=== PATIENT | female | born 1975 | race Caucasian/White ===

== ENCOUNTER 2016-12-17 11:56 | Emergency (ER) | payer OTHER ==
[~2016-12-17] VITALS: Ht 167.6 cm; Wt 59.1 kg
[2016-12-17] MEDS ORDERED: BIRTH CONTROL PO (12:32)
[2016-12-17] MEDS ORDERED: ALBU8HFA IH (12:32)
[2016-12-17] MEDS ORDERED: IBUPROFEN 600 MG TABLET PO ONE (13:00)
[2016-12-17] MEDS ORDERED: GABA-533 PO (13:08)
[2016-12-17] MEDS ORDERED: CLON.5 PO (13:08)
[2016-12-17] MEDS ORDERED: LORazepam 2 MG TABLET PO ONE (13:45)
[2016-12-17 15:18] VITALS: BP 125/68
== END 2016-12-17 15:20 | disposition home or self-care (01) ==
LOC: EMS 11:57
DX: S09.90XA Unspecified injury of head, initial encounter (principal); F41.9 Anxiety disorder, unspecified; M54.5 Low back pain; J45.909 Unspecified asthma, uncomplicated; F17.210 Nicotine dependence, cigarettes, uncomplicated; W19.XXXA Unspecified fall, initial encounter; Y93.89 Activity, other specified; Y92.89 Other specified places as the place of occurrence of the external cause; Y99.8 Other external cause status
CPT/HCPCS: 70450; 99284

== ENCOUNTER 2016-12-30 14:42 | Emergency (ER) | payer OTHER ==
[~2016-12-30] VITALS: Ht 167.6 cm; Wt 65.9 kg
[~2016-12-30 14:42] MED LIST: ALBU8HFA IH; BIRTH CONTROL PO; CLON.5 PO; GABA-533 PO
[2016-12-30] MEDS ORDERED: KETOROLAC TROMETHAMINE 30 MG/ML VIAL IVP ONE (15:15)
[2016-12-30] MEDS ORDERED: ONDANSETRON HCL 4 MG/2 ML VIAL IVP ONE (15:15)
[2016-12-30] MEDS ORDERED: SODIUM CHLORIDE 0.9% 1,000 ML IV ONE (15:15)
[2016-12-30 15:40] LABS: BASOPHILS % (AUTO) 0.5 % (0.0-2.0); EOSINOPHILS % (AUTO) 3.2 % (1.0-6.0); HEMATOCRIT 43.7 % (36-46); HEMOGLOBIN 14.1 g/dL (12.0-16.0); LYMPHOCYTES # (AUTO) 1.9 K/uL (1.0-4.8); LYMPHOCYTES % (AUTO) 26.4 % (22.0-44.0); MEAN CORPUSCULAR HEMOGLOBIN 31.6 pg (26.0-34.0); MEAN CORPUSCULAR HGB CONC 32.2 G/dL (31.0-37.0); MEAN CORPUSCULAR VOLUME 98 fL (80-100); MONOCYTES # (AUTO) 0.6 K/uL (0.1-1.0); MONOCYTES % (AUTO) 7.9 % (2.0-9.0); NEUTROPHILS # (AUTO) 4.6 K/uL (1.8-7.7); PLATELET COUNT (AUTO) 285 K/uL (150-450); RED BLOOD CELL COUNT(AUTO) 4.46 MIL/uL (4.00-5.20); RED CELL DISTRIBUTION WIDTH 13.7 % (11.5-14.5); WHITE BLOOD COUNT (AUTO) 7.4 K/uL (4.5-11.0)
[2016-12-30 18:11] VITALS: BP 112/68
== END 2016-12-30 18:56 | disposition home or self-care (01) ==
LOC: EMS 14:44
DX: N93.9 Abnormal uterine and vaginal bleeding, unspecified (principal); R10.2 Pelvic and perineal pain; J45.909 Unspecified asthma, uncomplicated; F17.210 Nicotine dependence, cigarettes, uncomplicated
CPT/HCPCS: 36415; 81025; 85025; 96361; 96374; 96375; 99284; J1885; J2405; J7030

== ENCOUNTER 2019-07-25 11:50 | Inpatient (IN) | payer MEDICAID ==
[~2019-07-25] VITALS: Ht 167.6 cm; Wt 59.1 kg
[2019-07-25 13:02] VITALS: BP 104/72
[2019-07-25 13:40] VITALS: BP 112/71
[2019-07-25] MEDS ORDERED: OMEPRAZOLE 20 MG CAPSULE PO PRN (14:30)
[2019-07-25] MEDS ORDERED: CloNIDine HCL 0.1 MG TABLET PO PRN (14:30)
[2019-07-25] MEDS ORDERED: MAGNESIUM HYDROXIDE SUSPENSION 30 ML UDCUP PO PRN (14:30)
[2019-07-25] MEDS ORDERED: BENZOCAINE/MENTHOL LOZENGE MM PRN (14:30)
[2019-07-25] MEDS ORDERED: ONDANSETRON HCL 4 MG TABLET PO PRN (14:30)
[2019-07-25] MEDS ORDERED: ACETAMINOPHEN 325 MG TABLET PO PRN (14:30)
[2019-07-25] MEDS ORDERED: PETROLATUM,WHITE 28 GM JELLY TP PRN (14:30)
[2019-07-25] MEDS ORDERED: LOPERAMIDE HCL 2 MG CAPSULE PO PRN (14:30)
[2019-07-25] MEDS ORDERED: DOCUSATE SODIUM 100 MG CAPSULE PO PRN (14:30)
[2019-07-25] MEDS ORDERED: MAG HYDROX/AL HYDROX/SIMETH ES 30 ML SUSPENSION UDCUP PO PRN (14:30)
[2019-07-25] MEDS ORDERED: BACITRACIN 28.4 GM OINTMENT TP PRN (14:30)
[2019-07-25] MEDS ORDERED: *PATIENT'S OWN MED [ENTER DRUG, DOSE, FREQUENCY IN COMMENTS] CLINICAL ONE (14:45)
[2019-07-25] MEDS: LORazepam 2 MG TABLET PO PRN (16:14)
[2019-07-25 16:15] VITALS: BP 122/86
[2019-07-25 16:28] VITALS: BP 103/64
[2019-07-25] MEDS: ZOLPIDEM TARTRATE 10 MG TABLET PO PRN (20:21)
[2019-07-26] MEDS: HALOPERIDOL 5 MG TABLET PO PRN ×2 (02:03→09:55)
[2019-07-26] MEDS: LORazepam 2 MG TABLET PO PRN ×4 (02:03→20:17)
[2019-07-26 02:20] VITALS: BP 107/74
[2019-07-26] MEDS: ALBUTEROL SULFATE HFA 90 MCG/PUFF 8 GM INHALER IH PRN (06:52)
[2019-07-26 08:06] VITALS: BP 111/56
[2019-07-26] MEDS: LEVOFLOXACIN 500 MG TABLET PO SCH (08:09)
[2019-07-26] MEDS: GABAPENTIN 400 MG CAPSULE PO SCH ×3 (08:09→16:33)
[2019-07-26 08:16] LABS: BASOPHILS % (AUTO) 0.6 % (0.0-2.0); EOSINOPHILS % (AUTO) 7.5 % (1.0-6.0); HEMATOCRIT 39.9 % (36-46); HEMOGLOBIN 13.6 g/dL (12.0-16.0); LYMPHOCYTES # (AUTO) 1.8 K/uL (1.0-4.8); MEAN CORPUSCULAR HEMOGLOBIN 33.4 pg (26.0-34.0); MEAN CORPUSCULAR VOLUME 98 fL (80-100); MONOCYTES # (AUTO) 0.7 K/uL (0.1-1.0); MONOCYTES % (AUTO) 10.2 % (2.0-9.0); NEUTROPHILS # (AUTO) 4.1 K/uL (1.8-7.7); NEUTROPHILS % (AUTO) 56.7 % (40.0-70.0); PLATELET COUNT (AUTO) 259 K/uL (150-450); RED BLOOD CELL COUNT(AUTO) 4.06 MIL/uL (4.00-5.20); RED CELL DISTRIBUTION WIDTH 13.6 % (11.5-14.5)
[2019-07-26 08:44] LABS: ALANINE AMINOTRANSFERASE 19 U/L (12-78); ALBUMIN 3.2 g/dL (3.4-5.0); ALKALINE PHOSPHATASE 74 U/L (46-116); ANION GAP 6 mmol/L (8-16); ASPARTATE AMINOTRANSFERASE 16 U/L (15-37); BILIRUBIN,TOTAL 0.1 mg/dL (0.1-1.0); CALCIUM, TOTAL 8.8 mg/dL (8.8-10.5); CARBON DIOXIDE 29 mmol/L (22-29); CHLORIDE 103 mmol/L (98-107); CREATININE 0.67 mg/dL (0.60-1.30); GLOMERULAR FILTR. RATE CALC > 60 mL/min (>60); GLUCOSE,RANDOM 89 mg/dL (70-110); HCG,QUANTITATIVE < 1 mIU/mL (0-6); POTASSIUM 4.7 mmol/L (3.5-5.1); SODIUM SERUM 138 mmol/L (136-145); UREA NITROGEN, BLOOD 19 mg/dL (7-18)
[2019-07-26 16:13] VITALS: BP 100/68
[2019-07-26] MEDS: OLANZapine 10 MG TABLET PO SCH (20:39)
[2019-07-27] MEDS: LORazepam 2 MG TABLET PO PRN ×3 (06:54→17:34)
[2019-07-27] MEDS: LEVOFLOXACIN 500 MG TABLET PO SCH (08:06)
[2019-07-27] MEDS: GABAPENTIN 400 MG CAPSULE PO SCH ×3 (08:07→16:32)
[2019-07-27] MEDS: DENTURE ADHESIVE 68 GM CREAM DT PRN (08:08)
[2019-07-27 08:14] VITALS: BP 121/76
[2019-07-27] MEDS: HALOPERIDOL 5 MG TABLET PO PRN (08:23)
[2019-07-27] MEDS: ALBUTEROL SULFATE HFA 90 MCG/PUFF 8 GM INHALER IH PRN (12:13)
[2019-07-27 16:23] VITALS: BP 116/70
[2019-07-27] MEDS: MUPIROCIN CALCIUM 2% 22 GM OINTMENT NASAL SCH (16:32)
[2019-07-27] MEDS: OLANZapine 10 MG TABLET PO SCH (20:31)
[2019-07-27] MEDS: ZOLPIDEM TARTRATE 10 MG TABLET PO PRN (20:31)
[2019-07-28 07:09] VITALS: BP 111/72
[2019-07-28] MEDS: LORazepam 2 MG TABLET PO PRN ×3 (07:10→20:08)
[2019-07-28 08:22] VITALS: BP 118/63
[2019-07-28] MEDS: MUPIROCIN CALCIUM 2% 22 GM OINTMENT NASAL SCH (08:30)
[2019-07-28] MEDS: GABAPENTIN 400 MG CAPSULE PO SCH ×3 (08:31→16:27)
[2019-07-28] MEDS: LEVOFLOXACIN 500 MG TABLET PO SCH (08:31)
[2019-07-28] MEDS: HALOPERIDOL 5 MG TABLET PO PRN ×2 (09:15→15:04)
[2019-07-28 16:06] VITALS: BP 107/60
[2019-07-28] MEDS: OLANZapine 10 MG TABLET PO SCH (20:09)
[2019-07-29 06:22] VITALS: BP 121/73
[2019-07-29] MEDS: GABAPENTIN 400 MG CAPSULE PO SCH ×3 (08:00→16:13)
[2019-07-29] MEDS: LEVOFLOXACIN 500 MG TABLET PO SCH (08:01)
[2019-07-29] MEDS: LORazepam 2 MG TABLET PO PRN ×2 (08:01→12:22)
[2019-07-29] MEDS: MUPIROCIN CALCIUM 2% 22 GM OINTMENT NASAL SCH (08:01)
[2019-07-29 08:26] VITALS: BP 120/90
[2019-07-29] MEDS: HALOPERIDOL 5 MG TABLET PO PRN ×2 (09:46→15:37)
[2019-07-29 16:26] VITALS: BP 113/60
[2019-07-29] MEDS: OLANZapine 10 MG TABLET PO SCH (20:35)
[2019-07-30 06:01] VITALS: BP 129/82
[2019-07-30] MEDS: LORazepam 2 MG TABLET PO PRN ×2 (06:03→11:50)
[2019-07-30] MEDS: MUPIROCIN CALCIUM 2% 22 GM OINTMENT NASAL SCH (08:03)
[2019-07-30] MEDS: GABAPENTIN 400 MG CAPSULE PO SCH ×3 (08:03→16:29)
[2019-07-30] MEDS: LEVOFLOXACIN 500 MG TABLET PO SCH (08:03)
[2019-07-30] MEDS: HALOPERIDOL 5 MG TABLET PO PRN ×2 (08:04→16:29)
[2019-07-30] MEDS: ALBUTEROL SULFATE HFA 90 MCG/PUFF 8 GM INHALER IH PRN ×2 (08:08→14:59)
[2019-07-30 08:17] VITALS: BP 128/80
[2019-07-30] MEDS: DENTURE ADHESIVE 68 GM CREAM DT PRN (12:05)
[2019-07-30 16:30] VITALS: BP 119/82
[2019-07-30] MEDS: IBUPROFEN 600 MG TABLET PO PRN (16:39)
[2019-07-30] MEDS: ZOLPIDEM TARTRATE 10 MG TABLET PO PRN (20:42)
[2019-07-30] MEDS: OLANZapine 10 MG TABLET PO SCH (20:42)
[2019-07-31 06:35] VITALS: BP 128/82
[2019-07-31] MEDS: GABAPENTIN 400 MG CAPSULE PO SCH ×3 (08:02→16:06)
[2019-07-31] MEDS: MUPIROCIN CALCIUM 2% 22 GM OINTMENT NASAL SCH (08:02)
[2019-07-31] MEDS: ALBUTEROL SULFATE HFA 90 MCG/PUFF 8 GM INHALER IH PRN (08:02)
[2019-07-31] MEDS: LEVOFLOXACIN 500 MG TABLET PO SCH (08:02)
[2019-07-31 08:07] VITALS: BP 126/78
[2019-07-31] MEDS: LORazepam 2 MG TABLET PO PRN ×2 (08:10→15:23)
[2019-07-31] MEDS: HALOPERIDOL 5 MG TABLET PO PRN (12:43)
[2019-07-31] MEDS: IBUPROFEN 600 MG TABLET PO PRN (16:13)
[2019-07-31 16:20] VITALS: BP 106/69
[2019-07-31] MEDS: OLANZapine 10 MG TABLET PO SCH (20:15)
[2019-08-01 06:18] VITALS: BP 127/64
[2019-08-01 08:35] VITALS: BP 116/67
[2019-08-01] MEDS: LORazepam 2 MG TABLET PO PRN ×2 (08:50→17:31)
[2019-08-01] MEDS: LEVOFLOXACIN 500 MG TABLET PO SCH (08:50)
[2019-08-01] MEDS: GABAPENTIN 400 MG CAPSULE PO SCH ×3 (08:50→16:27)
[2019-08-01] MEDS: DENTURE ADHESIVE 68 GM CREAM DT PRN (10:31)
[2019-08-01] MEDS: MUPIROCIN CALCIUM 2% 22 GM OINTMENT NASAL SCH (10:32)
[2019-08-01] MEDS: HALOPERIDOL 5 MG TABLET PO PRN ×3 (11:14→17:31)
[2019-08-01 16:04] VITALS: BP 119/81
[2019-08-01] MEDS: OLANZapine 10 MG TABLET PO SCH (20:28)
[2019-08-02] MEDS: GABAPENTIN 400 MG CAPSULE PO SCH ×3 (08:13→16:19)
[2019-08-02] MEDS: LEVOFLOXACIN 500 MG TABLET PO SCH (08:13)
[2019-08-02] MEDS: HALOPERIDOL 5 MG TABLET PO PRN ×2 (08:40→13:59)
[2019-08-02] MEDS: LORazepam 2 MG TABLET PO PRN (08:40)
[2019-08-02] MEDS: DENTURE ADHESIVE 68 GM CREAM DT PRN (11:15)
[2019-08-02 16:04] VITALS: BP 115/65
[2019-08-02] MEDS: OLANZapine 10 MG TABLET PO SCH (20:14)
[2019-08-02] MEDS: ZOLPIDEM TARTRATE 10 MG TABLET PO PRN (20:28)
[2019-08-03 06:13] VITALS: BP 123/67
[2019-08-03] MEDS: GABAPENTIN 400 MG CAPSULE PO SCH ×3 (07:51→16:01)
[2019-08-03] MEDS: IBUPROFEN 600 MG TABLET PO PRN (07:51)
[2019-08-03 07:52] VITALS: BP 131/91
[2019-08-03 08:30] VITALS: BP 131/91
[2019-08-03] MEDS: HALOPERIDOL 5 MG TABLET PO PRN (08:36)
[2019-08-03] MEDS ORDERED: BuPROPion HCL XL 150 MG ER TABLET PO SCH (12:15)
[2019-08-03] MEDS: ALBUTEROL SULFATE HFA 90 MCG/PUFF 8 GM INHALER IH PRN (12:26)
[2019-08-03 16:14] VITALS: BP 121/72
[2019-08-03] MEDS ORDERED: HydrOXYzine PAMOATE 50 MG CAPSULE PO PRN (16:45)
[2019-08-03] MEDS ORDERED: BUPR-93 PO (17:31)
[2019-08-03] MEDS ORDERED: OLAN10TA3 PO (17:31)
== END 2019-08-03 17:45 | disposition home or self-care (01) | DRG 750 ==
LOC: B3A 13:32
PROVIDERS: ADMIT Psychiatry & Neurology Child & Adolescent Psychiatry; ATTEND Psychiatry & Neurology Child & Adolescent Psychiatry
DX: F25.9 Schizoaffective disorder, unspecified (principal); R45.851 Suicidal ideations; Z59.0 Homelessness; F41.9 Anxiety disorder, unspecified; G47.00 Insomnia, unspecified; K59.00 Constipation, unspecified; Z79.899 Other long term (current) drug therapy
CPT/HCPCS: 87081; J3535; Q0162

== ENCOUNTER 2020-12-21 16:14 | Inpatient (IN) | payer MEDICAID ==
[~2020-12-21] VITALS: Ht 167.6 cm; Wt 65.3 kg
[~2020-12-21 16:14] MED LIST changes: -ALBU8HFA IH; -BIRTH CONTROL PO; +BUPR-93 PO; -CLON.5 PO; +GABA-1201 PO; -GABA-533 PO; +OLAN10TA3 PO
[2020-12-21 22:20] VITALS: BP 114/68
[2020-12-21] MEDS: LORazepam 2 MG TABLET PO PRN (22:55)
[2020-12-22 00:08] VITALS: BP 102/73
[2020-12-22] MEDS ORDERED: BUSP10TA23 PO (00:40)
[2020-12-22] MEDS ORDERED: IPRA3AMP23 NEB (00:40)
[2020-12-22] MEDS ORDERED: HYDR50CA9 PO (00:40)
[2020-12-22] MEDS ORDERED: QUET25TA PO (00:41)
[2020-12-22] MEDS ORDERED: TRAZ-257 PO (00:41)
[2020-12-22] MEDS ORDERED: TRAZ-252 PO (00:41)
[2020-12-22] MEDS ORDERED: QUET300T2 PO (00:41)
[2020-12-22] MEDS ORDERED: MAGNESIUM HYDROXIDE SUSPENSION 30 ML UDCUP PO PRN (08:00)
[2020-12-22] MEDS ORDERED: LOPERAMIDE HCL 2 MG CAPSULE PO PRN (08:00)
[2020-12-22] MEDS ORDERED: MAG HYDROX/AL HYDROX/SIMETH ES 30 ML SUSPENSION UDCUP PO PRN (08:00)
[2020-12-22] MEDS ORDERED: ONDANSETRON HCL 4 MG TABLET PO PRN (08:00)
[2020-12-22] MEDS ORDERED: IBUPROFEN 400 MG TABLET PO PRN (08:00)
[2020-12-22] MEDS ORDERED: PETROLATUM,WHITE 28 GM JELLY TP PRN (08:00)
[2020-12-22] MEDS ORDERED: NICOTINE 14 MG/24 HOUR PATCH TD PRN (08:00)
[2020-12-22] MEDS ORDERED: CloNIDine HCL 0.1 MG TABLET PO PRN (08:00)
[2020-12-22] MEDS ORDERED: DOCUSATE SODIUM 100 MG CAPSULE PO PRN (08:00)
[2020-12-22] MEDS ORDERED: ACETAMINOPHEN 325 MG TABLET PO PRN (08:00)
[2020-12-22] MEDS ORDERED: GuaiFENesin/D-METHORPHAN [SUGAR-FREE] 200-20MG/10 ML SYRUP UDCUP PO PRN (08:00)
[2020-12-22] MEDS ORDERED: ALBUTEROL SULFATE HFA 90 MCG/PUFF 8 GM INHALER IH PRN (08:00)
[2020-12-22] MEDS: LORazepam 2 MG TABLET PO PRN ×3 (08:38→17:36)
[2020-12-22] MEDS: HALOPERIDOL 5 MG TABLET PO PRN ×3 (08:38→17:36)
[2020-12-22] MEDS: OLANZapine 10 MG TABLET PO SCH ×2 (10:00→20:34)
[2020-12-22] MEDS: ZOLPIDEM TARTRATE 10 MG TABLET PO PRN (20:44)
[2020-12-23 08:34] VITALS: BP 103/59
[2020-12-23 08:35] VITALS: BP 110/68
[2020-12-23] MEDS: LORazepam 2 MG TABLET PO PRN ×2 (08:36→16:07)
[2020-12-23] MEDS: HALOPERIDOL 5 MG TABLET PO PRN ×2 (08:36→16:12)
[2020-12-23] MEDS: OLANZapine 10 MG TABLET PO SCH ×2 (08:36→20:26)
[2020-12-23 17:25] VITALS: BP 130/69
[2020-12-23] MEDS: ZOLPIDEM TARTRATE 10 MG TABLET PO PRN (20:53)
[2020-12-24 01:20] VITALS: BP 124/66
[2020-12-24] MEDS: LORazepam 2 MG TABLET PO PRN ×3 (07:47→17:10)
[2020-12-24] MEDS: DENTURE ADHESIVE 68 GM CREAM DT PRN (07:47)
[2020-12-24] MEDS: HALOPERIDOL 5 MG TABLET PO PRN ×3 (07:47→17:10)
[2020-12-24] MEDS: OLANZapine 10 MG TABLET PO SCH ×2 (08:12→21:08)
[2020-12-24 08:31] VITALS: BP 130/69
[2020-12-24 16:26] VITALS: BP 102/64
[2020-12-25 00:51] VITALS: BP 101/69
[2020-12-25] MEDS: DENTURE ADHESIVE 68 GM CREAM DT PRN (08:01)
[2020-12-25] MEDS: OLANZapine 10 MG TABLET PO SCH ×2 (08:02→20:31)
[2020-12-25] MEDS: LORazepam 2 MG TABLET PO PRN ×3 (08:09→18:06)
[2020-12-25 08:16] VITALS: BP 102/62
[2020-12-25] MEDS: HALOPERIDOL 5 MG TABLET PO PRN (16:21)
[2020-12-25 16:34] VITALS: BP 108/61
[2020-12-25] MEDS: ZOLPIDEM TARTRATE 10 MG TABLET PO PRN (20:32)
[2020-12-26 00:48] VITALS: BP 101/66
[2020-12-26] MEDS: DENTURE ADHESIVE 68 GM CREAM DT PRN (08:00)
[2020-12-26] MEDS: OLANZapine 10 MG TABLET PO SCH ×2 (08:00→20:23)
[2020-12-26] MEDS: HALOPERIDOL 5 MG TABLET PO PRN ×2 (08:00→16:22)
[2020-12-26] MEDS: LORazepam 2 MG TABLET PO PRN ×2 (08:00→16:21)
[2020-12-26 08:06] VITALS: BP 100/73
[2020-12-26] MEDS: FLUoxetine HCL 20 MG CAPSULE PO SCH (11:00)
[2020-12-26 16:05] VITALS: BP 101/71
[2020-12-26] MEDS: ZOLPIDEM TARTRATE 10 MG TABLET PO PRN (20:41)
[2020-12-27 01:35] VITALS: BP 100/66
[2020-12-27] MEDS: LORazepam 2 MG TABLET PO PRN ×2 (07:13→13:16)
[2020-12-27] MEDS: HALOPERIDOL 5 MG TABLET PO PRN ×2 (07:13→13:16)
[2020-12-27] MEDS: FLUoxetine HCL 20 MG CAPSULE PO SCH (08:12)
[2020-12-27] MEDS: DENTURE ADHESIVE 68 GM CREAM DT PRN (08:12)
[2020-12-27] MEDS: OLANZapine 10 MG TABLET PO SCH ×2 (08:12→20:21)
[2020-12-27 08:22] VITALS: BP 126/77
[2020-12-27 16:12] VITALS: BP 131/80
[2020-12-27] MEDS: ZOLPIDEM TARTRATE 10 MG TABLET PO PRN (20:23)
[2020-12-28 00:13] VITALS: BP 124/78
[2020-12-28 08:22] VITALS: BP 124/78
[2020-12-28] MEDS: LORazepam 2 MG TABLET PO PRN ×2 (08:22→12:23)
[2020-12-28] MEDS: OLANZapine 10 MG TABLET PO SCH ×2 (08:22→20:12)
[2020-12-28] MEDS: FLUoxetine HCL 20 MG CAPSULE PO SCH (08:22)
[2020-12-28] MEDS: HALOPERIDOL 5 MG TABLET PO PRN (12:23)
[2020-12-28] MEDS: DENTURE ADHESIVE 68 GM CREAM DT PRN (12:23)
[2020-12-28 16:01] VITALS: BP 117/66
[2020-12-28] MEDS: ZOLPIDEM TARTRATE 10 MG TABLET PO PRN (20:14)
[2020-12-29 00:30] VITALS: BP 112/63
[2020-12-29] MEDS: FLUoxetine HCL 20 MG CAPSULE PO SCH (08:04)
[2020-12-29] MEDS: OLANZapine 10 MG TABLET PO SCH ×2 (08:04→20:19)
[2020-12-29] MEDS: LORazepam 2 MG TABLET PO PRN ×2 (08:04→14:00)
[2020-12-29 08:06] VITALS: BP 121/84
[2020-12-29 16:09] VITALS: BP 101/60
[2020-12-30 01:40] VITALS: BP 112/67
[2020-12-30] MEDS: FLUoxetine HCL 20 MG CAPSULE PO SCH (08:04)
[2020-12-30] MEDS: OLANZapine 10 MG TABLET PO SCH ×2 (08:04→20:25)
[2020-12-30] MEDS: DENTURE ADHESIVE 68 GM CREAM DT PRN (08:05)
[2020-12-30] MEDS: LORazepam 2 MG TABLET PO PRN ×2 (08:05→16:11)
[2020-12-30 08:16] VITALS: BP 134/87
[2020-12-30 16:01] VITALS: BP 115/71
[2020-12-31 00:25] VITALS: BP 110/63
[2020-12-31 07:59] VITALS: BP 119/78
[2020-12-31] MEDS: FLUoxetine HCL 20 MG CAPSULE PO SCH (08:02)
[2020-12-31] MEDS: OLANZapine 10 MG TABLET PO SCH ×2 (08:02→20:08)
[2020-12-31] MEDS: LORazepam 2 MG TABLET PO PRN ×2 (08:02→16:19)
[2020-12-31 12:39] VITALS: BP 119/78
[2020-12-31 16:08] VITALS: BP 101/62
[2020-12-31] MEDS: ZOLPIDEM TARTRATE 10 MG TABLET PO PRN (20:35)
[2021-01-01] VITALS: BP 106/68
[2021-01-01] MEDS: FLUoxetine HCL 20 MG CAPSULE PO SCH (08:26)
[2021-01-01] MEDS: OLANZapine 10 MG TABLET PO SCH ×2 (08:26→20:22)
[2021-01-01] MEDS: DENTURE ADHESIVE 68 GM CREAM DT PRN (08:26)
[2021-01-01] MEDS: LORazepam 2 MG TABLET PO PRN ×2 (08:26→17:09)
[2021-01-01 08:27] VITALS: BP 123/72
[2021-01-01] MEDS: HALOPERIDOL 5 MG TABLET PO PRN (09:55)
[2021-01-01 16:20] VITALS: BP 105/60
[2021-01-02 00:31] VITALS: BP 100/63
[2021-01-02] MEDS: OLANZapine 10 MG TABLET PO SCH (08:09)
[2021-01-02] MEDS: LORazepam 2 MG TABLET PO PRN (08:09)
[2021-01-02] MEDS: FLUoxetine HCL 20 MG CAPSULE PO SCH (08:09)
[2021-01-02 08:13] VITALS: BP 123/59
[2021-01-02] MEDS ORDERED: OLAN10TA20 PO (13:16)
[2021-01-02] MEDS ORDERED: FLUO-191 PO (13:16)
[2021-01-02 16:05] VITALS: BP 122/70
== END 2021-01-02 16:45 | disposition home or self-care (01) | DRG 750 ==
LOC: B3A 22:08
DX: F25.1 Schizoaffective disorder, depressive type (principal); R45.851 Suicidal ideations; F12.10 Cannabis abuse, uncomplicated; F14.10 Cocaine abuse, uncomplicated; I10 Essential (primary) hypertension; J45.909 Unspecified asthma, uncomplicated; W13.4XXA Fall from, out of or through window, initial encounter; Y93.39 Activity, other involving climbing, rappelling and jumping off; Z79.899 Other long term (current) drug therapy
CPT/HCPCS: 87081; Z7610

== ENCOUNTER 2023-04-17 12:39 | Emergency (ER) | payer MEDICARE, OTHER ==
[~2023-04-17] VITALS: Ht 165.1 cm; Wt 68.2 kg
[~2023-04-17 12:39] MED LIST changes: -BUPR-93 PO; +FLUO-177 PO; -GABA-1201 PO; +OLAN10 PO; -OLAN10TA3 PO
[2023-04-17 12:45] VITALS: TEMP 98.3
[2023-04-17] MEDS ORDERED: QUET200T30 PO (12:48)
[2023-04-17] MEDS ORDERED: IPRAHFA IH (12:48)
[2023-04-17] MEDS ORDERED: ALBU18HF7 IH (12:48)
[2023-04-17] MEDS ORDERED: BUPR-49 PO (12:48)
[2023-04-17] MEDS ORDERED: GABA600T10 PO (12:48)
[2023-04-17 13:02] LABS: APPEARANCE,URINE CLEAR (CLEAR); BILIRUBIN,URINE NEGATIVE (NEGATIVE); GLUCOSE, URINE (UA) NEGATIVE (NEGATIVE); KETONES,URINE NEGATIVE (NEGATIVE); LEUKOCYTE ESTERASE ,URINE NEGATIVE (NEGATIVE); NITRATE,URINE NEGATIVE (NEGATIVE); OCCULT BLOOD,URINE TRACE (NEGATIVE); PH,URINE 5.5 (5.0-8.0); PROTEIN,URINE TRACE mg/dL (NEGATIVE); SPECIFIC GRAVITIY, URINE 1.028 (1.003-1.030); UROBILINOGEN,URINE <=1.0 mg/dL (<=1.0)
[2023-04-17] MEDS ORDERED: KETOROLAC TROMETHAMINE 60 MG/2 ML VIAL IM ONE (13:15)
[2023-04-17 13:18] LABS: BACTERIA,URINE None Seen /HPF (None Seen); RBC,URINE 0-2 /HPF (0-2); WBC,URINE None Seen /HPF (0-5)
[2023-04-17 14:11] LABS: COVID AG,FIA SOURCE NASAL SWAB
[2023-04-17] MEDS ORDERED: SODIUM CHLORIDE 0.9% 1,000 ML IV ONE (14:15)
[2023-04-17] MEDS ORDERED: AZITHROMYCIN 500 MG TABLET PO ONE (17:15)
[2023-04-17] MEDS ORDERED: CefTRIAXone SODIUM 500 MG in DEXTROSE 5%-WATER 50 ML IV ONE (17:15)
[2023-04-17 18:05] VITALS: BP 121/80; PULSE 92; RESP 16
== END 2023-04-17 18:15 | disposition home or self-care (01) ==
LOC: EMS 12:39
DX: N34.2 Other urethritis (principal); J45.909 Unspecified asthma, uncomplicated; F41.9 Anxiety disorder, unspecified; D25.9 Leiomyoma of uterus, unspecified; F17.210 Nicotine dependence, cigarettes, uncomplicated; Z90.49 Acquired absence of other specified parts of digestive tract; Z20.822 Contact with and (suspected) exposure to COVID-19
CPT/HCPCS: 99284; 96365; 96361; 87426; 81001; 96372; J0696; J1885; Q9967; J7060

== ENCOUNTER 2024-01-16 07:59 | Emergency (ER) | payer MEDICARE, OTHER ==
[~2024-01-16] VITALS: Ht 167.6 cm; Wt 68.2 kg
[~2024-01-16 07:59] MED LIST changes: +ALBU18HF7 IH; +BUPR-49 PO; -FLUO-177 PO; +GABA600T10 PO; +IPRAHFA IH; -OLAN10 PO; +QUET200T30 PO
[2024-01-16 08:01] VITALS: TEMP 98
[2024-01-16 08:38] VITALS: BP 115/86; PULSE 102; RESP 16
[2024-01-16] MEDS ORDERED: ACETAMINOPHEN 500 MG TABLET PO ONE (08:45)
[2024-01-16] MEDS ORDERED: SODIUM CHLORIDE 0.9% 1,000 ML IV ONE (08:45)
== END 2024-01-16 09:30 | disposition home or self-care (01) ==
LOC: EMS 08:00
DX: H61.23 Impacted cerumen, bilateral (principal); F41.9 Anxiety disorder, unspecified; J44.89 Other specified chronic obstructive pulmonary disease; D25.9 Leiomyoma of uterus, unspecified; F17.210 Nicotine dependence, cigarettes, uncomplicated; Z90.49 Acquired absence of other specified parts of digestive tract
CPT/HCPCS: 69210; 93005; 99283; 99284

== ENCOUNTER 2024-08-13 08:50 | Emergency (ER) | payer MEDICARE, OTHER ==
[~2024-08-13] VITALS: Ht 167.6 cm; Wt 68.2 kg
[~2024-08-13 08:50] MED LIST changes: -BUPR-49 PO; +GABA-1404 PO; -GABA600T10 PO
[2024-08-13 08:58] VITALS: BP 121/93; PULSE 111; RESP 22; TEMP 98.4; O2SAT 99
[2024-08-13] MEDS ORDERED: QUET200T PO (09:19)
[2024-08-13] MEDS ORDERED: MICO15CR9 VG (09:19)
[2024-08-13] MEDS: AZITHROMYCIN 500 MG TABLET PO ONE (09:35)
[2024-08-13] MEDS: CefTRIAXone SODIUM 1 GM/VIAL IM ONE (09:35)
[2024-08-13] MEDS: LIDOCAINE/PF 1% 2 ML VIAL IM ONE (09:35)
[2024-08-13 09:55] LABS: ALCOHOL, URINE DRUG SCREEN NEGATIVE (NEGATIVE); AMPHET/METH SCREEN,URINE NEGATIVE (NEGATIVE); BARBITURATE SCREEN, URINE NEGATIVE (NEGATIVE); BENZODIAZEPINES SCREEN,URINE NEGATIVE (NEGATIVE); CANNABINOID SCREEN,URINE POSITIVE (NEGATIVE); COCAINE SCREEN,URINE NEGATIVE (NEGATIVE); METHADONE SCREEN, URINE NEGATIVE (NEGATIVE); OPIATE SCREEN,URINE NEGATIVE (NEGATIVE); PHENCYCLIDINE SCREEN,URINE NEGATIVE (NEGATIVE)
== END 2024-08-13 10:30 | disposition home or self-care (01) ==
LOC: EMS 08:52
DX: R53.1 Weakness (principal); F25.9 Schizoaffective disorder, unspecified; F32.A Depression, unspecified; F41.9 Anxiety disorder, unspecified; F17.210 Nicotine dependence, cigarettes, uncomplicated; Z90.49 Acquired absence of other specified parts of digestive tract; Z79.899 Other long term (current) drug therapy
CPT/HCPCS: 99283; 87491; 87591; 96372; 80307; J0456; J0696; J3490; 99284

== ENCOUNTER 2024-11-01 07:55 | Emergency (ER) | payer MEDICARE, OTHER ==
[~2024-11-01] VITALS: Ht 167.6 cm; Wt 68.2 kg
[~2024-11-01 07:55] MED LIST changes: +MICO15CR9 VG; +QUET200T PO
[2024-11-01 07:59] VITALS: TEMP 98.5
[2024-11-01 08:26] LABS: BASOPHILS % (AUTO) 0.7 % (0.0-2.0); HEMATOCRIT 45.5 % (36-46); HEMOGLOBIN 15.5 g/dL (12.0-16.0); LYMPHOCYTES # (AUTO) 1.3 K/uL (1.0-4.8); LYMPHOCYTES % (AUTO) 27.5 % (22.0-44.0); MEAN CORPUSCULAR HEMOGLOBIN 34.2 pg (26.0-34.0); MEAN CORPUSCULAR VOLUME 101 fL (80-100); MONOCYTES # (AUTO) 0.5 K/uL (0.1-1.0); MONOCYTES % (AUTO) 10.1 % (2.0-9.0); NEUTROPHILS # (AUTO) 2.6 K/uL (1.8-7.7); NEUTROPHILS % (AUTO) 55.7 % (40.0-70.0); RED BLOOD CELL COUNT(AUTO) 4.53 MIL/uL (4.00-5.20); RED CELL DISTRIBUTION WIDTH 14.2 % (11.5-14.5); WHITE BLOOD COUNT (AUTO) 4.7 K/uL (4.5-11.0)
[2024-11-01 08:37] LABS: ANION GAP 9 mmol/L (8-16); CALCIUM, TOTAL 8.9 mg/dL (8.8-10.5); CARBON DIOXIDE 27 mmol/L (22-29); CHLORIDE 106 mmol/L (98-107); CREATININE 0.87 mg/dL (0.60-1.30); GLOMERULAR FILTR. RATE CALC > 60 mL/min (>60); GLUCOSE,RANDOM 98 mg/dL (70-110); POTASSIUM 3.6 mmol/L (3.5-5.1); SODIUM SERUM 142 mmol/L (136-145); UREA NITROGEN, BLOOD 12 mg/dL (7-18)
[2024-11-01 08:38] LABS: PLATELET COUNT (AUTO) 298 K/uL (150-450)
[2024-11-01 08:53] LABS: RBC MORPHOLOGY COMMENT ABNORMAL RBC MORPH
[2024-11-01] MEDS: KETOROLAC TROMETHAMINE 30 MG/ML VIAL IVP ONE (08:53)
[2024-11-01] MEDS: SODIUM CHLORIDE 0.9% 1,000 ML IV ONE (08:53)
[2024-11-01] MEDS: LORazepam 2 MG/ML VIAL IVP ONE (08:54)
[2024-11-01] MEDS ORDERED: CLOT45CR44 VG (09:15)
[2024-11-01] MEDS ORDERED: METR500 PO (09:15)
[2024-11-01] MEDS: AZITHROMYCIN 500 MG TABLET PO ONE (10:01)
[2024-11-01 10:14] VITALS: BP 114/81; PULSE 97; RESP 18; O2SAT 100
== END 2024-11-01 10:16 | disposition home or self-care (01) ==
LOC: EMS 08:02
DX: N92.4 Excessive bleeding in the premenopausal period (principal); N76.0 Acute vaginitis; F17.210 Nicotine dependence, cigarettes, uncomplicated; F41.9 Anxiety disorder, unspecified; J44.89 Other specified chronic obstructive pulmonary disease; F32.A Depression, unspecified; R07.89 Other chest pain; Z90.49 Acquired absence of other specified parts of digestive tract
CPT/HCPCS: 99284; 96374; 96361; 96375; 80048; 84703; 85025; 36415; 93005; J1885; J0456; J2060; J7030

== ENCOUNTER 2025-06-17 10:38 | Emergency (ER) | payer MEDICARE, OTHER ==
[~2025-06-17] VITALS: Ht 167.6 cm; Wt 68.2 kg
[~2025-06-17 10:38] MED LIST changes: +CLOT45CR44 VG; -GABA-1404 PO; +IBUP-1492 PO; +METR500 PO; -MICO15CR9 VG; +PERCT PO; -QUET200T30 PO
[2025-06-17 10:42] VITALS: TEMP 98.9
[2025-06-17 11:15] VITALS: BP 124/71; PULSE 92; RESP 18; O2SAT 97
[2025-06-17 11:20] LABS: PLATELET COUNT (AUTO) 231 K/uL (150-450); RED BLOOD CELL COUNT(AUTO) 4.58 MIL/uL (4.00-5.20); RED CELL DISTRIBUTION WIDTH 18.7 % (11.5-14.5); WHITE BLOOD COUNT (AUTO) 5.6 K/uL (4.5-11.0)
[2025-06-17] MEDS: ACETAMINOPHEN 500 MG TABLET PO ONE (11:27)
[2025-06-17] MEDS: KETOROLAC TROMETHAMINE 30 MG/ML VIAL IM ONE (11:27)
[2025-06-17 11:30] LABS: CALCIUM, TOTAL 8.3 mg/dL (8.8-10.5); CREATININE 0.61 mg/dL (0.60-1.30); GLOMERULAR FILTR. RATE CALC > 60 mL/min (>60); GLUCOSE,RANDOM 79 mg/dL (70-110); SODIUM SERUM 139 mmol/L (136-145); UREA NITROGEN, BLOOD 11 mg/dL (7-18)
[2025-06-17] MEDS ORDERED: IBUP-1492 PO (11:51)
[2025-06-17] MEDS ORDERED: ACET-3385 PO (11:51)
== END 2025-06-17 12:41 | disposition home or self-care (01) ==
LOC: EMS 10:47
DX: R51.9 Headache, unspecified (principal); F12.90 Cannabis use, unspecified, uncomplicated; J44.89 Other specified chronic obstructive pulmonary disease; F41.9 Anxiety disorder, unspecified; Z90.49 Acquired absence of other specified parts of digestive tract
CPT/HCPCS: 99283; 80048; 84703; 85025; 36415; 96372; J1885

== ENCOUNTER 2025-07-06 01:11 | Emergency (ER) | payer MEDICARE, OTHER ==
[~2025-07-06] VITALS: Ht 167.6 cm; Wt 68.2 kg
[~2025-07-06 01:11] MED LIST changes: +ACET-3385 PO; -CLOT45CR44 VG; -IPRAHFA IH; -METR500 PO; -PERCT PO; -QUET200T PO
[2025-07-06 01:18] VITALS: TEMP 98.4
[2025-07-06 01:52] VITALS: BP 128/70; PULSE 139; RESP 20; O2SAT 100
[2025-07-06] MEDS: CefTRIAXone SODIUM 1 GM/VIAL IM ONE (04:28)
[2025-07-06] MEDS: AZITHROMYCIN 500 MG TABLET PO ONE (04:28)
[2025-07-06] MEDS: LIDOCAINE/PF 1% 2 ML VIAL IM ONE (04:28)
== END 2025-07-06 06:37 | disposition left against medical advice (07) ==
LOC: EMS 01:11
DX: T74.21XA Adult sexual abuse, confirmed, initial encounter (principal); Z53.21 Procedure and treatment not carried out due to patient leaving prior to being seen by health care provider; Y92.89 Other specified places as the place of occurrence of the external cause
CPT/HCPCS: 99281; J0456; J0696; J3490